=== PATIENT | female | born 1955 | race Caucasian/White ===

== ENCOUNTER 2023-05-02 09:54 | Outpatient (AMB) | payer MEDICARE, MEDICAID, SELFPAY ==
--- NOTE | 2023-05-02 09:58 | MHC.PC.OV ---
Vital Signs 05/02/23 10:19 Height 5 ft 4 in Weight 184 lb BMI 31.6 BP 122/70 Blood Pressure Location Rt brachial Position Sitting Pulse 84 Pulse Source Pulse Oximeter Pulse Oximetry (%) 94 Oxygen Delivery Method Room Air Intake Visit Reasons: Est. Care DM, GERD/Requesting PE Intake Note: Pt is here today as New Patient to est care DM, and requesting a PE Allergies No Known Allergies Allergy (Verified 05/02/23 10:13) Tobacco use date assessed: 05/02/23 Fall risk assessment: No Falls in past year Last assessed Fall Risk: 05/02/23 Dental Screening Dental Screen Date: 05/02/23 Did you have a dental visit in the last 12 months?: No Was dental information given to patient?: Patient declined HPI HPI Comments History of Present Illness Details Patient is a 68-year-old female in today to establish care. The patient currently resides at [facility] in [place]. Patient has no history of colonoscopy and declines colonoscopy screen or Cologuard. Patient is also declining mammogram, bone density scan, eye screen, the pneumonia vaccine, and the shingles vaccine. She has a past medical history significant for hypertension, hyperlipidemia diabetes type 2, osteoarthritis, anxiety, major depressive disorder, asthma, and anemia. Patient states that she has her advertising display rotator visiting the assisted living facility in the beginning of June 2023. Patient states that she does not check her blood sugar at home, and does not want to start checking her blood sugar. Patient has been educated on the importance of keeping her blood glucose level in control to avoid complication. Her A1c in office today was 6.4. The patient states that she does not know her biological family and is not aware of any family disease. [facility] Medical History (Updated 05/02/23 @ 16:33 by GUSTAVO Black) Hyperlipidemia GERD (gastroesophageal reflux disease) Asthma Anemia Social History Patient Tobacco Use Status: Former Tobacco user e-Cigarette/Vaping Use: Never Used Cognitive needs: No Hearing needs: No Vision needs: No Questionnaire PHQ-9 Over the last 2 weeks, how often have you been bothered by any of the following problems? 47137 - PHQ-9 Billing: Patient declined-do not bill Source: Developed by Drs. Carlos Wilson, Naa Harden, Supa Bourne and colleagues, with an educational luana from [employer]. Thrive Questionnaire Date Thrive assessed: 05/02/23 I am a: Patient What is your living situation today?: I have a steady place to live Within the past 12 months, did the food you bought not last and you didn't have the money to get more?: Never true Within the past 12 months, did you worry whether your food would run out before you got money to buy more?: Never true Do you have trouble paying for medicines?: No Do you have trouble getting transportation to medical appointments?: No Do you have trouble paying your heating and electricity bill?: No Do you have trouble taking care of your child, family member or friend?: No Do you have trouble with day-to-day activities such as bathing, preparing meals, shopping, managing finances, etc.?: No Are you currently unemployed and looking for a job?: No Are you interested in more education?: No AUDIT C Alcohol Use Questionnaire (AUDIT-C) 1. How often do you have a drink containing alcohol?: Never Total Score: 0 DARIEN-7 AMB Questionnaire DARIEN-7 Date DARIEN - 7 assessed: 05/02/23 Source: Developed by Drs. Carlos Wilson, Naa Harden, Supa Bourne and colleagues, with an educational luana from [employer]. DARIEN-7 Assessment Billing DARIEN-7 Assessment Tool: pt declined-do not bill Review of Systems Const Details: Constitutional : No Weight loss, No Fever, No Chills, Admits occasional Fatigue, No Malaise ENT/Mouth : No sore throat, Admits nasal congestion. Eyes: No Eye Pain, No Swelling, No Redness Cardiovascular : No Chest Pain, No SOB, No Dyspnea on Exertion, No Orthopnea, No Edema, No Palpitations Respiratory : No Cough, No Sputum, No Wheezing Gastrointestinal : No Nausea, No Vomiting, No Diarrhea, No Constipation, No abdominal Pain, No Hematochezia, No Melena Genitourinary : No Dysuria, No Urinary Frequency, No Hematuria, Musculoskeletal : Admits right shoulder and elbow pain. Skin : Admits dry feet Neuro : No Weakness, No Numbness, No Dizziness, No Headache Psych : No Anxiety/Panic, No Depression Heme/Lymph: No Bruising, No Bleeding,No Lymphadenopathy Endocrine : No Polyuria, No Polydipsia All other systems reviewed and are negative Physical exam (Primary Care) Vital Signs: Last Vital Signs Pulse 84 05/02/23 10:19 BP 122/70 05/02/23 10:19 Pulse Ox 94 05/02/23 10:19 Oxygen Delivery Method Room Air 05/02/23 10:19 Care Plan Goal for BP management: Vital signs have been reviewed and are stable BMI result Body Mass Index 31.6 Tobacco/Smoking Status: Tobacco use Status Tobacco use date assessed 05/02/23 05/02/23 10:16 Patient Tobacco Use Status Former Tobacco user 05/02/23 10:16 e-Cigarette/Vaping Use Never Used 05/02/23 10:16 Const Other: Appearance: Alert.? Oriented X3.? No acute distress.? Head: Normocephalic, atraumatic, no step-offs or deformities Eyes: Pupils equal, round and reactive to light, sclerae normal ENT: TM intact, pearly murphy bilaterally, septum midline, pharynx normal? Neck: Normal inspection.? Neck supple.? No lymphadenopathy CVS: Normal heart rate and rhythm.? Pulses normal.? Systolic murmur present. Respiratory: No respiratory distress.? Breath sounds normal.? Abdomen: Soft and nontender.? Skin: Flaking and scaling on feet bilaterally. No wounds. Extremities: No lower extremity edema. 3/5 strength to bilateral upper and lower extremities. Range of motion limited to abduction of the right shoulder. Back: No midline tenderness, no C-spine tenderness, full range of motion, no CVA tenderness bilaterally, patient has kyphosis. Neuro: Oriented X 3.? No motor deficit.? No sensory deficit. CN 2-12 intact General: cooperative and no acute distress Limitations: no limitations Results AMB Hemoglobin A1c AMB Hemoglobin A1c 6.4 % Last Edit by Olga Mcrae CMA on 05/02/23 10:39 Results Reviewed Results Reviewed: Will call patient with lab draw results. Assessment and Plan Assessment & Plan (1) Encounter for routine adult physical exam with abnormal findings: Code(s): Z00.01 - Encounter for general adult medical examination with abnormal findings Plan: Will draw CBC, CMP, Lipid profile, Iron profile, vitamin-D, TSH, T4. Patient is declining colonoscopy, mammogram, bone density scan, optometry visit. Patient has podiatry visiting her assisted living facility in beginning of June 2023. Patient is declining all immunizations at this time. (2) Diabetes: Comment: Patient has been instructed to continue her current regimen of glipizide ER 2.5 mg p.o. daily and metformin 1000 mg p.o. b.i.d.. Patient has been instructed to take her blood sugars at home which she refuses to do. Patient has dry scaling feet bilateral, has upcoming appointment with Podiatry beginning of June 2023. Patient declines topical lotion at this time. A1c in office today was 6.4. Patient has been educated on proper diet and foods to avoid. Patient declined optometry visit. Patient has been educated on signs of worsening symptoms when to present back to the office or when to present to the ER. Code(s): E11.9 - Type 2 diabetes mellitus without complications Qualifiers: Diabetes mellitus type: type 2 Diabetes mellitus complication status: without complication Diabetes mellitus [facility] insulin use: without inspection engineer use Qualified Code(s): E11.9 - Type 2 diabetes mellitus without complications (3) Osteoarthritis: Comment: Patient has long history of osteoarthritis. Most affected joint appears to be the right shoulder and right elbow where she rates the pain to be about 5 of 10. Patient was sent with medication list from her assisted living home which states she has diclofenac gel, and Celebrex. Patient states that she has not tried using the diclofenac gel and has been instructed to do so. Code(s): M19.90 - Unspecified osteoarthritis, unspecified site Qualifiers: Osteoarthritis location: multiple joints Osteoarthritis type: primary Qualified Code(s): M15.9 - Polyosteoarthritis, unspecified (4) Nasal congestion: Comment: Patient has fluticasone nasal spray which she forgot she has and has been using. Patient has been advised that she can use the fluticasone nasal spray once per day to help relieve nasal congestion. Code(s): R09.81 - Nasal congestion Plan Patient has follow-up in 3 months. Orders: Orders AMB Hemoglobin A1c Today Z13.9 - Encounter for screening, unspecified Complete Blood Count Auto Diff Today E11.9 - Type 2 diabetes mellitus without complications Comprehensive Met. Panel Today Z00.00 - Encounter for general adult medical examination without abnormal findings IRON PROFILE Today D64.9 - Anemia, unspecified Vitamin D 25-OH (D2 and D3) Today Z00.00 - Encounter for general adult medical examination without abnormal findings TSH reflex Free T4 Today Z00.00 - Encounter for general adult medical examination without abnormal findings Lipid Panel Today Z00.00 - Encounter for general adult medical examination without abnormal findings Coding Level of Care Code New Pt Level 4 (38979) Diagnoses Encounter for routine adult physical exam with abnormal findings Z00.01 Type 2 diabetes mellitus without complication, without long-term current use of insulin E11.9 Diabetes mellitus type: type 2 Diabetes mellitus complication status: without complication Diabetes mellitus [facility] insulin use: without [facility] use Primary osteoarthritis involving multiple joints M15.9 Osteoarthritis location: multiple joints Osteoarthritis type: primary Nasal congestion R09.81
[2023-05-02 10:19] VITALS: BP 122/70; PULSE 84; O2SAT 94; BMI 31.6
== END 2023-05-02 11:32 | disposition home or self-care (01) ==
LOC: HO.HMGC 09:54
PROVIDERS: PCP Nurse Practitioner Primary Care; Visit Provider Nurse Practitioner Primary Care
DX: Z00.00 Encounter for general adult medical examination without abnormal findings (principal); E11.9 Type 2 diabetes mellitus without complications; M15.9 Polyosteoarthritis, unspecified; R09.81 Nasal congestion
CPT/HCPCS: 83036; 99387; 99397